=== PATIENT | female | born 1995 | race Hispanic/Latino ===

== ENCOUNTER 2022-06-02 13:53 | Outpatient (CLI) | payer OTHER | END 2022-06-02 13:54 | disposition home or self-care (01) | LOC: BICULT 13:53 | PROVIDERS: ATTEND Obstetrics & Gynecology | DX: N63.22 Unspecified lump in the left breast, upper inner quadrant (principal); R59.0 Localized enlarged lymph nodes; R92.1 Mammographic calcification found on diagnostic imaging of breast | CPT/HCPCS: 77066; G0279 ==

== ENCOUNTER 2022-06-03 12:32 | Outpatient (CLI) | payer OTHER | END 2022-06-03 12:33 | disposition home or self-care (01) | LOC: BICMRI 12:32 | PROVIDERS: ATTEND Obstetrics & Gynecology | DX: R92.8 Other abnormal and inconclusive findings on diagnostic imaging of breast (principal); N63.20 Unspecified lump in the left breast, unspecified quadrant; R59.0 Localized enlarged lymph nodes | CPT/HCPCS: A9577; C8908 ==

== ENCOUNTER → 2022-06-04 | Day surgery (SDC) | payer OTHER | LOC: BICULT 12:53 | PROVIDERS: ATTEND Obstetrics & Gynecology | PROC: 0H9U3ZX Drainage of Left Breast, Percutaneous Approach, Diagnostic (ICD-10-PCS; principal; 2022-06-04) | PROC: 07D63ZX Extraction of Left Axillary Lymphatic, Percutaneous Approach, Diagnostic (ICD-10-PCS; principal; 2022-06-04) | DX: C50.812 Malignant neoplasm of overlapping sites of left female breast (principal); C77.3 Secondary and unspecified malignant neoplasm of axilla and upper limb lymph nodes | CPT/HCPCS: 19083; 38505; 88305; 88342 ==

== ENCOUNTER 2022-06-16 07:00 | Day surgery (SDC) | payer OTHER | END 2022-06-16 09:17 | disposition home or self-care (01) | LOC: MAMMO 07:00 | PROVIDERS: ATTEND Obstetrics & Gynecology | PROC: 0H9T3ZX Drainage of Right Breast, Percutaneous Approach, Diagnostic (ICD-10-PCS; principal; 2022-06-16) | DX: D05.11 Intraductal carcinoma in situ of right breast (principal); Z85.3 Personal history of malignant neoplasm of breast | CPT/HCPCS: 19081; 76098; 88305; 88341; 88342; 88361 ==

== ENCOUNTER 2022-06-23 08:06 | Outpatient (CLI) | payer MEDICAID, OTHER ==
[2022-06-23] MEDS ORDERED: Iopamidol 370 76% 100 ML VIAL ONE (08:37)
== END 2022-06-23 08:07 | disposition home or self-care (01) ==
LOC: CT 08:06
PROVIDERS: ATTEND Internal Medicine Hematology & Oncology
DX: C50.812 Malignant neoplasm of overlapping sites of left female breast (principal); R59.0 Localized enlarged lymph nodes; R93.0 Abnormal findings on diagnostic imaging of skull and head, not elsewhere classified
CPT/HCPCS: 71260; 74177; 78306; A9503; Q9967

== ENCOUNTER 2022-06-24 10:38 | Outpatient (CLI) | payer MEDICAID, SELFPAY ==
[2022-06-24 12:39] LABS: #Eosinphils 0.1 10x3/uL (0.0-0.5); #Monocytes 0.4 10x3/uL (0.0-1.1); #Neutrophils 5.8 10x3/uL (1.5-8.4); %Basophils 0.5 % (0.0-2.0); %Eosinophils 0.6 % (0.0-6.0); %Lymphocytes 27.3 % (18.0-47.0); %Monocytes 4.4 % (0.0-10.0); %Neutrophils 66.9 % (40.0-75.0); Hemoglobin 13.1 g/dL (12.0-15.5); Mean Corpuscular HGB CONC 33.8 g/dL (32.0-36.0); Mean Corpuscular Hemoglobin 31.6 pg (27.0-33.0); Mean Corpuscular Volume 93.5 fl (81.6-98.3); Mean Platelet Volume 10.9 fl (7.4-10.4); Platelet Count 358 10x3/uL (150-450); RBC Distribution Width 12.3 % (11.5-14.5); Red Blood Cell (RBC) Count 4.15 10x6/uL (3.90-5.03); White Blood Cell (WBC) Count 8.6 10x3/uL (3.5-10.5)
[2022-06-24 12:56] LABS: BHCG - Serum Negative (NEGATIVE); Pregs Control Background? CLEAR/WHITE (CLR/WHITE); Pregs Control Bar Appear? YES (CONTROL BAR)
[2022-06-24 13:06] LABS: Anion Gap 13 mmol/L (10-20); BUN (Urea Nitrogen) 9 mg/dL (7.0-18.7); Calc. Creatinine Clearance 0 mL/min (70-130); Calcium 9.5 mg/dL (7.8-10.44); Carbon Dioxide 25 mmol/L (22-29); Chloride 106 mmol/L (98-107); Estimated GFR 109; Glucose 135 mg/dL (70-105); Potassium 4.2 mmol/L (3.5-5.1); Sodium 140 mmol/L (136-145)
== END 2022-06-24 10:39 | disposition home or self-care (01) ==
LOC: LABBT 10:38
PROVIDERS: ATTEND Specialist
DX: Z01.812 Encounter for preprocedural laboratory examination (principal); D05.12 Intraductal carcinoma in situ of left breast; I07.1 Rheumatic tricuspid insufficiency; Z20.822 Contact with and (suspected) exposure to COVID-19
CPT/HCPCS: 80048; 84703; 85025; 87811; 93306

== ENCOUNTER 2022-06-29 06:40 | Day surgery (SDC) | payer MEDICAID ==
[2022-06-25 12:08] VITALS: BMI 48.6
[2022-06-29] MEDS ORDERED: Ketorolac Tromethamine 30 MG/ML VIAL ONE (06:56)
[2022-06-29] MEDS ORDERED: Acetaminophen 500 MG TAB ONE (06:56)
[2022-06-29] MEDS ORDERED: Midazolam HCl 2 mg/2 ml Vial ONE (07:19)
[2022-06-29] MEDS ORDERED: fentaNYL Citrate/PF 100 MCG/2 ML SYRINGE ONE (08:39)
[2022-06-29] MEDS ORDERED: Propofol 500 MG/50 ML VIAL ONE (08:39)
[2022-06-29] MEDS ORDERED: Bupivacaine/Epinephrine 0.25% 30 ML VIAL ONE (08:41)
[2022-06-29] MEDS ORDERED: Lidocaine 2% PF 5 ML VIAL ONE (08:41)
[2022-06-29] MEDS ORDERED: Lidocaine 1% PF 5 ML VIAL ONE (09:07)
[2022-06-29] MEDS ORDERED: PROPOFOL 200 MG/20 ML VIAL ONE (09:07)
== END 2022-06-29 11:03 | disposition home or self-care (01) ==
LOC: SDC 06:40
PROVIDERS: ATTEND Specialist
PROC: 02HV33Z Insertion of Infusion Device into Superior Vena Cava, Percutaneous Approach (ICD-10-PCS; principal; 2022-06-29)
PROC: 0JH60WZ Insertion of Totally Implantable Vascular Access Device into Chest Subcutaneous Tissue and Fascia, Open Approach (ICD-10-PCS; principal; 2022-06-29)
DX: C50.912 Malignant neoplasm of unspecified site of left female breast (principal); D05.11 Intraductal carcinoma in situ of right breast; E03.9 Hypothyroidism, unspecified; E66.01 Morbid (severe) obesity due to excess calories; Z68.42 Body mass index [BMI] 45.0-49.9, adult; Z17.1 Estrogen receptor negative status [ER-]; Z79.3 Long term (current) use of hormonal contraceptives; Z79.890 Hormone replacement therapy
CPT/HCPCS: 71045; C1788; J1642; J1885; J2001; J2250; J2704

== ENCOUNTER 2022-08-26 09:28 | Outpatient (CLI) | payer OTHER ==
[2022-08-26] MEDS ORDERED: Magnevist 469MG/ML 20 ML VIAL ONE (10:22)
== END 2022-08-26 09:29 | disposition home or self-care (01) ==
LOC: TBSIIMAG 09:28
PROVIDERS: ATTEND Neurological Surgery
DX: D49.6 Neoplasm of unspecified behavior of brain (principal); G93.9 Disorder of brain, unspecified
CPT/HCPCS: 70553; A9579

== ENCOUNTER 2022-12-23 09:08 | Outpatient (CLI) | payer OTHER ==
[2022-12-23 10:03] LABS: BHCG - Serum Negative (NEGATIVE); Pregs Control Background? CLEAR/WHITE (CLR/WHITE); Pregs Control Bar Appear? YES (CONTROL BAR)
== END 2022-12-23 09:09 | disposition home or self-care (01) ==
LOC: CT 09:08
PROVIDERS: ATTEND Internal Medicine Hematology & Oncology
DX: C50.812 Malignant neoplasm of overlapping sites of left female breast (principal); M89.9 Disorder of bone, unspecified; K76.0 Fatty (change of) liver, not elsewhere classified; C79.51 Secondary malignant neoplasm of bone
CPT/HCPCS: 36415; 71260; 74177; 78306; 84703; A9503

== ENCOUNTER 2022-12-24 12:37 | Outpatient (CLI) | payer OTHER, BC ==
[2022-12-24 14:01] LABS: #Basophils 0.1 10x3/uL (0.0-0.2); #Monocytes 0.7 10x3/uL (0.0-1.1); #Neutrophils 6.8 10x3/uL (1.5-8.4); %Basophils 0.5 % (0.0-2.0); %Eosinophils 0.3 % (0.0-6.0); %Lymphocytes 17.8 % (18.0-47.0); %Monocytes 7.4 % (0.0-10.0); %Neutrophils 72.7 % (40.0-75.0); Hemoglobin 11.6 g/dL (12.0-15.5); Mean Corpuscular HGB CONC 33.5 g/dL (32.0-36.0); Mean Corpuscular Hemoglobin 32.2 pg (27.0-33.0); Mean Corpuscular Volume 96.1 fl (81.6-98.3); Mean Platelet Volume 10.5 fl (7.4-10.4); Platelet Count 264 10x3/uL (150-450); RBC Distribution Width 15.1 % (11.5-14.5); White Blood Cell (WBC) Count 9.3 10x3/uL (3.5-10.5)
[2022-12-24 14:23] LABS: BHCG - Serum Negative (NEGATIVE); Pregs Control Background? CLEAR/WHITE (CLR/WHITE); Pregs Control Bar Appear? YES (CONTROL BAR)
[2022-12-24 14:27] LABS: Anion Gap 13 mmol/L (10-20); BUN (Urea Nitrogen) 12 mg/dL (7.0-18.7); Calc. Creatinine Clearance 0 mL/min (70-130); Calcium 8.9 mg/dL (7.8-10.44); Carbon Dioxide 24 mmol/L (22-29); Chloride 107 mmol/L (98-107); Estimated GFR 119; Glucose 127 mg/dL (70-105); Potassium 3.9 mmol/L (3.5-5.1); Sodium 140 mmol/L (136-145)
== END 2022-12-24 12:38 | disposition home or self-care (01) ==
LOC: LABBT 12:37
PROVIDERS: ATTEND Specialist
DX: Z01.812 Encounter for preprocedural laboratory examination (principal); D05.11 Intraductal carcinoma in situ of right breast
CPT/HCPCS: 80048; 84703; 85025

== ENCOUNTER → 2022-12-27 | Day surgery (SDC) | payer OTHER, BC ==
[2022-12-23 12:41] VITALS: BMI 50.0
[~2022-12-27] MED LIST: Bupivacaine/Epinephrine 0.25% 30 ML VIAL ONE; CEFAZOLIN 2 GM VIAL ONE; Dexamethasone 20 MG/5 ML VIAL ONE; Famotidine/PF 20 mg/2ml Vial ONE; Fentanyl 100 MCG/2 ML VIAL ONE; Fentanyl 250 MCG/5 ML VIAL ONE; Gentamicin 80 MG/2 ML VIAL ONE; HYDROcodone/Acetaminophen 5/325 mg Tablet ONE; Heparin 5,000 UNITS/ML VIAL ONE; Isosulfan Blue 50 MG/5 ML VIAL ONE; Ketorolac Tromethamine 30 MG/ML VIAL ONE; Lidocaine 1% PF 5 ML VIAL ONE; Methylene Blue 50 MG/10 ML AMPUL ONE; Metoclopramide HCl 10 MG/2 ML VIAL ONE; Midazolam HCl 2 mg/2 ml Vial ONE; Ondansetron PF 4 MG/2 ML Vial ONE; PROPOFOL 200 MG/20 ML VIAL ONE; Rocuronium Bromide 10 MG/ML (10ML VIAL) ONE; SUGAMMADEX SODIUM 200 MG/2 ML VIAL ONE; Sodium Bicarbonate 2.5 MEQ/5 ML VIAL ONE; Sodium Chloride 0.9% 100 ML ONE; fentaNYL PF 100 MCG/2 ML SYRINGE ONE
== END | disposition home or self-care (01) ==
LOC: SDC 10:34
PROVIDERS: ATTEND Specialist
PROC: 0HTV0ZZ Resection of Bilateral Breast, Open Approach (ICD-10-PCS; principal; 2022-12-27)
PROC: 07B60ZX Excision of Left Axillary Lymphatic, Open Approach, Diagnostic (ICD-10-PCS; principal; 2022-12-27)
PROC: 0HRV07Z Replacement of Bilateral Breast with Autologous Tissue Substitute, Open Approach (ICD-10-PCS; principal; 2022-12-27)
DX: C50.912 Malignant neoplasm of unspecified site of left female breast (principal); D05.11 Intraductal carcinoma in situ of right breast; N60.91 Unspecified benign mammary dysplasia of right breast; E03.9 Hypothyroidism, unspecified; C77.3 Secondary and unspecified malignant neoplasm of axilla and upper limb lymph nodes; E66.01 Morbid (severe) obesity due to excess calories; Z68.43 Body mass index [BMI] 50.0-59.9, adult; Z17.1 Estrogen receptor negative status [ER-]; Z79.620 Long term (current) use of immunosuppressive biologic; Z79.890 Hormone replacement therapy
CPT/HCPCS: 88307; 88309; C1776; J1100; J1580; J1644; J1885; J2250; J2405; J2704; J2765; J3010; J3371; J3490; Q9968; S0028

== ENCOUNTER 2023-01-13 11:30 | Outpatient (CLI) | payer OTHER | END 2023-01-13 11:31 | disposition home or self-care (01) | LOC: CT 11:30 | PROVIDERS: ATTEND Internal Medicine Hematology & Oncology | DX: C50.919 Malignant neoplasm of unspecified site of unspecified female breast (principal); C79.51 Secondary malignant neoplasm of bone | CPT/HCPCS: 70470 ==

== ENCOUNTER 2023-03-03 12:28 | Outpatient (CLI) | payer BC, OTHER | END 2023-03-03 12:29 | disposition home or self-care (01) | LOC: CT 12:28 | PROVIDERS: ATTEND Neurological Surgery | DX: C71.9 Malignant neoplasm of brain, unspecified (principal); D49.6 Neoplasm of unspecified behavior of brain; L98.8 Other specified disorders of the skin and subcutaneous tissue | CPT/HCPCS: 70450 ==

== ENCOUNTER 2023-07-20 08:31 | Outpatient (CLI) | payer BC, OTHER ==
[2023-07-20] MEDS ORDERED: Iopamidol 370 76% 100 ML VIAL ONE (09:52)
== END 2023-07-20 08:32 | disposition home or self-care (01) ==
LOC: NM 08:31
PROVIDERS: ATTEND Internal Medicine Hematology & Oncology
DX: C50.812 Malignant neoplasm of overlapping sites of left female breast (principal); M89.9 Disorder of bone, unspecified; K76.0 Fatty (change of) liver, not elsewhere classified; Z90.12 Acquired absence of left breast and nipple; Z98.82 Breast implant status
CPT/HCPCS: 70470; 71260; 74177; 78306; A9503; Q9967

== ENCOUNTER 2023-12-20 15:29 | Outpatient (CLI) | payer BC | END 2023-12-20 15:30 | disposition home or self-care (01) | LOC: BICCT 15:29 | PROVIDERS: ATTEND Neurological Surgery | DX: D49.6 Neoplasm of unspecified behavior of brain (principal); M89.8X8 Other specified disorders of bone, other site | CPT/HCPCS: 70450 ==